=== PATIENT | male | born 1950 | race Caucasian/White ===

== ENCOUNTER 2022-03-14 09:29 | Day surgery (SDC) | payer MEDICARE ==
[2022-03-14] MEDS ORDERED: Lactated Ringers 1,000 ML IV SCH (10:00)
[2022-03-14] MEDS ORDERED: ceFAZolin 2 GM in Sodium Chloride 0.9% 50 ML IV ONE (11:00)
[2022-03-14] MEDS ORDERED: Bupivacaine 0.5%/EPINEPHrine 1:200,000 50 ML MDV ONE (11:29)
[2022-03-14] MEDS ORDERED: Propofol 200 MG/20 ML SDV ONE (11:32)
[2022-03-14] MEDS ORDERED: fentaNYL 100 MCG/2 ML SDV ONE (11:32)
[2022-03-14] MEDS ORDERED: Midazolam 1 MG/ML 2 ML SDV ONE (11:32)
== END 2022-03-14 13:17 | disposition home or self-care (01) ==
LOC: JP.SDS 09:29
PROVIDERS: ATTEND Student in an Organized Health Care Education/Training Program
DX: R22.1 Localized swelling, mass and lump, neck (principal); Z79.899 Other long term (current) drug therapy
CPT/HCPCS: 11423; 88304; J0690; J2250; J2704; J3010; J3490; J7120